=== PATIENT | male | born 1950 | race Caucasian/White ===

== ENCOUNTER → 2018-09-11 | Outpatient (CLI) | payer OTHER ==
[~2018-09-11] MED LIST: ACTOPLUS MET 501 TAB PO; ACTOS 15MG TAB15 MG PO; ALDACTONE 25MG25 M1 PO; AMOXICILLIN 8751 TAB PO; ASPIRIN 32325 MG/TAB PO; ASPIRIN 81M81 MG/TA2 PO; BACTRIM PO; CATAPRES 0.1MG0.1 MG PO; CATAPRES-TTS 20.2 M1 TD; CATAPRES0.2 MG PO; CEPHALEXIN500 M1 PO; COLACE 100100 MG/CAP PO; DOXYCYCLINE 10100 MG PO; EXFORGE 5/160; FISH OIL CONC1000 MG PO; FLAGYL500 MG PO; FLOMAX 0.40.4 MG/CAP PO; GLUCOTROL10 MG PO; KOMBIGLYZE XR 11 TER PO; LEVAQUIN 5500 MG/TA1 PO; LEVAQUIN 750MG750 MG PO; LORTAB 5/500 501 TAB PO; NEURONTIN300 MG/CAP PO; NORCO 325 MG-51 TAB PO; NORVASC 5MG5 MG/TAB PO; PERCOCET 325 MG1 TA2 PO; PHENERGAN 25 TA25 MG PO; PRINZIDE 12.5 M1 TA1 PO; PROTONIX 40MG T40 MG PO; SEPTRA DS 8001 TAB PO; SULAR; TENORMIN100 MG PO; ULTRAM 50MG TAB50 MG PO; UNKNOWN BP MED; ZESTRIL 10MG10 MG PO; ZOFRAN ODT4 MG PO; ZOFRAN8 MG PO
== END ==
LOC: COL.RAD 07:46
DX: Z13.6 Encounter for screening for cardiovascular disorders (principal); M79.89 Other specified soft tissue disorders

== ENCOUNTER → 2019-07-14 | Outpatient (CLI) | payer OTHER | LOC: ZCOL.LAB 10:46 | DX: L97.929 Non-pressure chronic ulcer of unspecified part of left lower leg with unspecified severity (principal) ==

== ENCOUNTER 2020-02-16 14:46 | Outpatient (RCR) | payer OTHER ==
[2020-02-18] MEDS ORDERED: ASPIRIN E.C. 8181 MG PO (16:37)
[2020-02-18] MEDS ORDERED: LOTREL 10 MG-401 CAP PO (16:37)
[2020-02-18] MEDS ORDERED: LIPITOR 40MG TA40 MG PO (16:38)
[2020-02-18] MEDS ORDERED: NEURONTIN100 MG/CAP PO (16:38)
[2020-02-18] MEDS ORDERED: GLUCOTROL10 MG PO (16:39)
[2020-02-18] MEDS ORDERED: HCTZ 25MG TAB25 MG PO (16:40)
[2020-02-18] MEDS ORDERED: NORCO 325 MG-7.1 TAB PO (16:40)
[2020-02-18] MEDS ORDERED: TOPROL XL200 MG PO (16:41)
[2020-02-18] MEDS ORDERED: ACTOS 15MG TAB15 MG PO (16:42)
[2020-02-18] MEDS ORDERED: PRIL40 PO (16:42)
[2020-02-18] MEDS ORDERED: JANUVIA50 MG PO (16:43)
== END 2020-05-16 | disposition home or self-care (01) ==
LOC: WSOH
DX: S00.83XA Contusion of other part of head, initial encounter (principal); I10 Essential (primary) hypertension; Z87.891 Personal history of nicotine dependence; E11.40 Type 2 diabetes mellitus with diabetic neuropathy, unspecified; M81.8 Other osteoporosis without current pathological fracture; E11.69 Type 2 diabetes mellitus with other specified complication; Y99.0 Civilian activity done for income or pay

== ENCOUNTER 2020-02-18 14:13 | Outpatient (CLI) | payer BC, MEDICARE, OTHER ==
[~2020-02-18] VITALS: Ht 188 cm; Wt 123.0 kg
[2020-02-18 15:27] LABS: CALCIUM 9.3 mg/dL (8.4-10.2); CREATININE, serum 1.77 (0.66-1.25); POTASSIUM 3.7 mmol/L (3.4-5.0)
[2020-02-18 15:59] VITALS: BP 145/73; PULSE 78; TEMP 98.4
[2020-02-18] MEDS ORDERED: LOTREL 10 MG-401 CAP PO (16:37)
[2020-02-18] MEDS ORDERED: ASPIRIN E.C. 8181 MG PO (16:37)
[2020-02-18] MEDS ORDERED: LIPITOR 40MG TA40 MG PO (16:38)
[2020-02-18] MEDS ORDERED: NEURONTIN100 MG/CAP PO (16:38)
[2020-02-18] MEDS ORDERED: GLUCOTROL10 MG PO (16:39)
[2020-02-18] MEDS ORDERED: HCTZ 25MG TAB25 MG PO (16:40)
[2020-02-18] MEDS ORDERED: NORCO 325 MG-7.1 TAB PO (16:40)
[2020-02-18] MEDS ORDERED: TOPROL XL200 MG PO (16:41)
[2020-02-18] MEDS ORDERED: PRIL40 PO (16:42)
[2020-02-18] MEDS ORDERED: ACTOS 15MG TAB15 MG PO (16:42)
[2020-02-18] MEDS ORDERED: JANUVIA50 MG PO (16:43)
== END 2020-02-18 16:30 | disposition home or self-care (01) ==
LOC: EUO 14:13
PROVIDERS: Registered Nurse
DX: N17.9 Acute kidney failure, unspecified (principal); I95.1 Orthostatic hypotension; E86.0 Dehydration
CPT/HCPCS: J7030

== ENCOUNTER → 2020-05-09 | Outpatient (CLI) | payer MEDICARE, OTHER ==
[~2020-05-09] MED LIST changes: +ASPIRIN E.C. 8181 MG PO; +HCTZ 25MG TAB25 MG PO; +JANUVIA50 MG PO; +LIPITOR 40MG TA40 MG PO; +LOTREL 10 MG-401 CAP PO; +NEURONTIN100 MG/CAP PO; +NORCO 325 MG-7.1 TAB PO; +PRIL40 PO; +TOPROL XL200 MG PO
== END ==
LOC: ZCOL.LAB 16:09
DX: L97.929 Non-pressure chronic ulcer of unspecified part of left lower leg with unspecified severity (principal); L03.116 Cellulitis of left lower limb

== ENCOUNTER → 2021-03-16 | Outpatient (CLI) | payer MEDICARE | LOC: ZCOL.LAB 16:38 | DX: T25.211A Burn of second degree of right ankle, initial encounter (principal) ==

== ENCOUNTER 2021-08-20 13:58 | Outpatient (RCR) | payer OTHER | END 2021-08-24 | disposition home or self-care (01) | LOC: WSOH | DX: M25.511 Pain in right shoulder (principal); E11.40 Type 2 diabetes mellitus with diabetic neuropathy, unspecified; I10 Essential (primary) hypertension; K21.9 Gastro-esophageal reflux disease without esophagitis; Z98.890 Other specified postprocedural states; Z89.432 Acquired absence of left foot; W19.XXXA Unspecified fall, initial encounter; Y99.0 Civilian activity done for income or pay ==

== ENCOUNTER 2022-10-24 01:28 | Emergency (ER) | payer MEDICARE ==
[2022-10-24 02:00] LABS: HEMATOCRIT 48.2 % (42.0-52.0); HEMOGLOBIN 15.3 g/dl (13.5-18.0); MEAN CELL VOLUME 93 fl (80.0-100.0); MEAN CORPUSCULAR HEMOGLOBIN 29 pg (27-31); MEAN CORPUSCULAR HGB CONC 32 g/dl (33.0-37.0); MEAN PLATELET VOLUME 12.1 fl (7.4-10.4); PLATELET COUNT 217 K/mm3 (130-400); REDCELL DISTRIBUTION WIDTH-CV 14.5 % (11.5-14.5)
[2022-10-24 02:02] LABS: ARTERIAL BLD GAS O2 SATURATION 97.6 % (92-100); ARTERIAL BLD GAS TCO2 CT 22.6; ARTERIAL BLOOD GAS BASE EXCESS -10.5 (-2-2); ARTERIAL BLOOD GAS HCO3 20.5 meq/L (22-26)
[2022-10-24 02:03] LABS: ARTERIAL BLOOD GAS PCO2 67.7 mmHg (35-45)
[2022-10-24 02:04] LABS: ARTERIAL BLOOD GAS PO2 130.8 mmHg (80-100)
[2022-10-24 02:09] LABS: COLLECTION METHOD IN
[2022-10-24 02:09] LABS: INR 1.2 (0.8-3.0); PROTHROMBIN TIME 13.4 SECONDS (9.7-12.8)
[2022-10-24 02:17] LABS: SQUAMOUS EPITHELIAL 0-2 /hpf (0-10); URINE BACTERIA None Seen /hpf (NONE SEEN)
[2022-10-24 02:17] LABS: ALANINE AMINOTRANSFERASE 57 U/L (0-55); ALBUMIN 3.2 gm/dL (3.4-4.8); ALKALINE PHOSPHATASE 135 U/L (40-150); ANION GAP 15 mmol/L (7-16); AST,SGOT 61 U/L (5-34); BILIRUBIN,TOTAL 1.2 mg/dL (0.2-1.2); BLOOD UREA NITROGEN 28 mg/dL (8-26); C-REACTIVE PROTEIN 0.32 mg/dL (0.00-0.50); CALCIUM 8.5 mg/dL (8.4-10.2); CARBON DIOXIDE 20 mmol/L (23-31); CHLORIDE 101 mmol/L (98-107); POTASSIUM 3.6 mmol/L (3.5-4.5); SODIUM 136 mmol/L (136-145); TOTAL PROTEIN 6.7 gm/dL (6.2-8.1)
[2022-10-24 02:18] LABS: URINE APPEARANCE Hazy (CLEAR/HAZY); URINE COLOR Yellow (YELLOW); URINE PROTEIN(semi-quant) 1+ (NEGATIVE)
[2022-10-24 02:19] LABS: URINE BLOOD TRACE-LYSED (NEGATIVE); URINE GLUCOSE 2+ (NEGATIVE); URINE KETONE Negative (NEGATIVE); URINE NITRATE Negative (NEGATIVE); URINE UROBILINOGEN 0.2 E.U/dL (0.2-1.0)
[2022-10-24 02:22] LABS: GLUCOSE 613 mg/dL (70-99)
[2022-10-24 02:24] VITALS: TEMP 97.1
[2022-10-24 02:25] LABS: TROPONIN-I < 0.010 ng/mL (0.00-0.033)
[2022-10-24 02:27] LABS: BAND 4 % (0-10); EOSINOPHIL 1 % (0-4); LYMPHOCYTE 33 % (20.0-51.0); METAMYELOCYTE 2 % (0-0); NEUTROPHILS 52 % (42.0-75.2); PLATELET ESTIMATE NORMAL (NORMAL)
[2022-10-24 03:30] VITALS: BP 134/75; PULSE 76
--- NOTE | 2022-10-24 03:38 | NUR ---
CALLED BY ER NURSING STAFF REGARDING A CODE RED PT COMING INTO THE ER. PRESENTED TO ROOM AND DOCTOR ASKED FOR BIPAP. LISANDRA TO RT DEPARTMENT AND BROUGHT BIPAP TO ROOM. AT THIS POINT COMPRESSIONS WERE BEING DONE ON PT. OBTAINED AIRWAY CART AND SUPPLIES. ASSISTED WITH INTUBATIO/CODE. ASSISTED WITH BAGGING PATIENT HOLDING TUBE AFTER INTUBATION AND PLACING SUCTION IN LINE ALONG WITH ET TUBE MONTERO. TUBE PLACEMENT VERIFIED WITH BREATH SOUNDS. PT PLACED ON VENT. VERBAL ORDER FROM PHYSICIAN GIVEN TO OBTAIN AN ABG AFTER PT WAS INTUBATED. OBTAINED ABG X1 ATTEMPT. TRANSPORTED BACK TO RT DEPARTMENT AND RAN. AFTER ABG WAS PROCESSED PRESENTED BACK TO ER AND GAVE SRI MANN AND GERRI A COPY OF ABG RESULTS. WAS WAITING FOR FLIGHT TEAM TO ARRIVE. NOTIFIED THAT [facility] REQUIRES A CT PRIOR TO ACCEPTING PT. ASSISTED WITH TRANSPORT OF PT VIA BAG AND ETT TO CT. SECURED TUBE. JOHNATHAN ROSE BAGGED PT DURING PROCEDURE. FLIGHT TEAM PRESENTED TO RADIOLOGY CT ROOM. PT TRANSFERRED TO THEIR BED. PT PLACED ON TRANSPORT VENTILATOR BY FLIGHT TEAM. COPY OF ABG RESULTS GIVEN TO FLIGHT TEAM.
== END 2022-10-24 03:15 | disposition short-term general hospital (02) ==
LOC: COL.ER → EDBD 01:29 → COL.ER 01:29
PROVIDERS: Emergency Medicine
DX: I46.9 Cardiac arrest, cause unspecified (principal); J90 Pleural effusion, not elsewhere classified; J81.1 Chronic pulmonary edema; R74.02 Elevation of levels of lactic acid dehydrogenase [LDH]; Z20.822 Contact with and (suspected) exposure to COVID-19; Z28.310 Unvaccinated for COVID-19; Z99.89 Dependence on other enabling machines and devices
CPT/HCPCS: J0171; J1815; J1940; J2704; J3010

== ENCOUNTER → 2023-01-22 | Outpatient (RCR) | payer MEDICARE ==
[~2023-01-22] MED LIST changes: +BENTYL 10MG10 MG/CAP PO; +K-DUR20 MEQ PO; +LASIX 40MG TABL40 MG PO; +LYRICA 150MG C150 MG PO; +NASACORT OTC NS; -NORCO 325 MG-7.1 TAB PO; +OZEMPIC1 MG/0.71 SQ; +TOPROL XL 50MG50 MG PO; -TOPROL XL200 MG PO
== END | disposition home or self-care (01) ==
LOC: COL.CR
DX: Z48.812 Encounter for surgical aftercare following surgery on the circulatory system (principal); Z98.61 Coronary angioplasty status